=== PATIENT | male | born 1950 | race Caucasian/White ===

== ENCOUNTER 2025-07-25 11:14 | Emergency (ER) | payer OTHER ==
[~2025-07-25] VITALS: Ht 160 cm; Wt 65.8 kg
[2025-07-25] MEDS ORDERED: HYDROCODONE/APAP 10/325MG TABLET ONE (12:23)
[2025-07-25] MEDS: HYDROCODONE/APAP 10/325MG TABLET PO ONE (12:27)
[2025-07-25] MEDS ORDERED: HYDR-4303 PO (14:43)
[2025-07-25] MEDS ORDERED: DOCU-141 PO (14:43)
[2025-07-25 17:46] VITALS: BP 126/71; TEMP 98.1; O2SAT 95
== END 2025-07-25 17:47 | disposition home or self-care (01) ==
LOC: ER 11:22
DX: S30.0XXA Contusion of lower back and pelvis, initial encounter (principal); M84.40XA Pathological fracture, unspecified site, initial encounter for fracture; N21.0 Calculus in bladder; I10 Essential (primary) hypertension; E78.00 Pure hypercholesterolemia, unspecified; W01.0XXA Fall on same level from slipping, tripping and stumbling without subsequent striking against object, initial encounter; Y93.89 Activity, other specified; Y92.89 Other specified places as the place of occurrence of the external cause; Y99.8 Other external cause status
CPT/HCPCS: 72131-TC